=== PATIENT | female | born 1950 | race Caucasian/White ===

== ENCOUNTER 2021-06-15 12:46 | Outpatient (REF) | payer MEDICARE, BC, SELFPAY ==
[2021-06-15 22:44] LABS: Anion Gap 8.4 mmol/L (3-11); BUN 11 mg/dL (7-18); CO2 28.6 mmol/L (21.0-32.0); CREATININE 0.8 mg/dL (0.55-1.02); Calcium 9.3 mg/dL (8.5-10.1); Chloride 104 mmol/L (98-107); Glucose 97 mg/dL (74-106); Potassium 3.8 mmol/L (3.5-5.1); Sodium 141 mmol/L (136-145)
== END 2021-06-15 12:47 | disposition home or self-care (01) ==
LOC: NCHCN 12:46
PROVIDERS: Visit Provider Nurse Practitioner Family
DX: I10 Essential (primary) hypertension (principal)
CPT/HCPCS: 80048

== ENCOUNTER 2022-05-09 14:49 | Outpatient (REF) | payer MEDICARE, BC, SELFPAY ==
[2022-05-09 16:05] LABS: Anion Gap 5.7 mmol/L (3-11); BUN 19 mg/dL (7-18); CO2 30.3 mmol/L (21.0-32.0); Calcium 9.5 mg/dL (8.5-10.1); Chloride 104 mmol/L (98-107); Estimated GFR 60.23 (mL/min/1.73m2); Glucose 115 mg/dL (74-106); Potassium 3.4 mmol/L (3.5-5.1); Sodium 140 mmol/L (136-145)
[2022-05-09 16:54] LABS: Vitamin D 25 Total 43.9 ng/mL (30-100)
[2022-05-09 17:18] LABS: Hemoglobin A1C 6.1 % (<5.7)
== END 2022-05-09 14:50 | disposition home or self-care (01) ==
LOC: NCHCN 14:49
PROVIDERS: Visit Provider Nurse Practitioner Family
DX: K30 Functional dyspepsia (principal); E55.9 Vitamin D deficiency, unspecified; I10 Essential (primary) hypertension; E66.9 Obesity, unspecified
CPT/HCPCS: 80048; 82306; 83036

== ENCOUNTER 2023-05-02 14:54 | Outpatient (REF) | payer MEDICARE, BC, SELFPAY ==
[2023-05-02 21:24] LABS: HCT 45.3 % (36.0-46.0); HGB 14.7 g/dL (11.2-15.7); MCH 29.4 pg (27.0-33.0); MCHC 32.5 % (32.0-36.0); MCV 91 fL (80-95); MPV 10.7 fL (8.0-11.0); Platelet Count 289 10^3/uL (130-400); RDW 13.2 % (11.7-14.6); RDW-SD 44.1 fL; WBC 6.99 10^3/uL (4.4-10.8)
[2023-05-02 22:08] LABS: ALT 41 U/L (14-59); AST 29 U/L (15-37); Albumin 4.1 g/dL (3.4-5.0); Alkaline Phosphatase 60 U/L (46-116); Anion Gap 10.9 mmol/L (3-11); BUN 17 mg/dL (7-18); Bilirubin, Total 0.4 mg/dL (0.2-1.0); CO2 27.1 mmol/L (21.0-32.0); CREATININE 0.9 mg/dL (0.55-1.02); Calculated LDL 112 mg/dL (<100); Chloride 105 mmol/L (98-107); Cholesterol 204 mg/dL (<200); Estimated GFR 67.92 (mL/min/1.73m2); Glucose 93 mg/dL (74-106); HDL Cholesterol 67 mg/dL (40-60); Potassium 3.7 mmol/L (3.5-5.1); Sodium 143 mmol/L (136-145); Triglyceride 129 mg/dL (<150)
== END 2023-05-02 14:55 | disposition home or self-care (01) ==
LOC: NCHCN 14:54
PROVIDERS: Visit Provider Nurse Practitioner Family
DX: E78.5 Hyperlipidemia, unspecified (principal); I10 Essential (primary) hypertension
CPT/HCPCS: 80053; 80061; 85027

== ENCOUNTER 2024-03-14 17:56 | Outpatient (REF) | payer MEDICARE, BC, SELFPAY ==
[2024-03-14 15:04] LABS: HCT 46.2 % (36.0-46.0); HGB 15.2 g/dL (11.2-15.7); MCH 29.7 pg (27.0-33.0); MCHC 32.9 % (32.0-36.0); MCV 90 fL (80-95); MPV 10.7 fL (8.0-11.0); Platelet Count 272 10^3/uL (130-400); RBC 5.11 10^6/uL (3.93-5.22); RDW 12.8 % (11.7-14.6); RDW-SD 42.5 fL; WBC 5.96 10^3/uL (4.4-10.8)
[2024-03-14 15:29] LABS: Hemoglobin A1C 6.2 % (<5.7)
[2024-03-14 15:38] LABS: ALT 38 U/L (14-59); AST 22 U/L (15-37); Albumin 3.6 g/dL (3.4-5.0); Alkaline Phosphatase 69 U/L (46-116); Anion Gap 10.2 mmol/L (3-11); BUN 10 mg/dL (7-18); Bilirubin, Total 0.59 mg/dL (0.2-1.0); CO2 27.8 mmol/L (21.0-32.0); CREATININE 0.9 mg/dL (0.55-1.02); Calcium 9.2 mg/dL (8.5-10.1); Chloride 104 mmol/L (98-107); Glucose 136 mg/dL (74-106); Potassium 3.6 mmol/L (3.5-5.1); Sodium 142 mmol/L (136-145); TSH (W/Ref FT4) 1.24 uIU/mL (0.36-3.74); Total Protein 6.6 g/dL (6.4-8.2); Vitamin D 25 Total 44.2 ng/mL (30-100)
== END 2024-03-14 17:57 | disposition home or self-care (01) ==
LOC: NCHCN 17:56
PROVIDERS: PCP Nurse Practitioner Family; Visit Provider Nurse Practitioner Family
DX: R73.03 Prediabetes (principal); F41.9 Anxiety disorder, unspecified; E55.9 Vitamin D deficiency, unspecified; I10 Essential (primary) hypertension
CPT/HCPCS: 80053; 82306; 85027; 83036; 84443

== ENCOUNTER 2025-05-27 15:36 | Outpatient (REF) | payer MEDICARE, BC, SELFPAY ==
[2025-05-27 14:39] LABS: Abs Immature Grans 0.02 10^3/uL (0.0-0.06); HCT 46.2 % (36.0-46.0); HGB 15.3 g/dL (11.2-15.7); Immature Grans % 0.3 %; MCH 30.4 pg (27.0-33.0); MCHC 33.1 % (32.0-36.0); MCV 92 fL (80-95); MPV 10.4 fL (8.0-11.0); Platelet Count 291 10^3/uL (130-400); RBC 5.03 10^6/uL (3.93-5.22); RDW 13.2 % (11.7-14.6); RDW-SD 45.3 fL; WBC 6.75 10^3/uL (4.4-10.8)
[2025-05-27 15:10] LABS: Vitamin D 25 Total 37 ng/mL (30-100)
[2025-05-27 15:16] LABS: ALT 30 U/L (10-49); AST 24 U/L (<34); Albumin 4.4 g/dL (3.4-5.0); Alkaline Phosphatase 63 U/L (46-116); Anion Gap 9.3 mmol/L (3-11); BUN 16 mg/dL (9-23); Bilirubin, Total 0.60 mg/dL (0.2-1.2); CO2 28.7 mmol/L (20.0-31.0); Calcium 9.7 mg/dL (8.3-10.6); Chloride 105 mmol/L (98-107); Cholesterol 196 mg/dL (<200); Glucose 119 mg/dL (74-106); HDL Cholesterol 71 mg/dL (>40); Potassium 3.6 mmol/L (3.5-5.1); Sodium 143 mmol/L (136-145); Total Protein 6.8 g/dL (5.7-8.2)
[2025-05-27 15:50] LABS: Hemoglobin A1C 6.1 % (<5.7)
== END 2025-05-27 15:37 | disposition home or self-care (01) ==
LOC: NCHCN 15:36
PROVIDERS: PCP Nurse Practitioner Family; Visit Provider Nurse Practitioner Family
DX: R73.03 Prediabetes (principal)
CPT/HCPCS: 80053; 80061; 82306; 83036; 85025